=== PATIENT | female | born 1940 | race Caucasian/White ===

== ENCOUNTER → 2016-04-17 | Outpatient (CLI) | payer MEDICARE, BC | LOC: MC.RAD 11:02 | DX: Z12.31 Encounter for screening mammogram for malignant neoplasm of breast (principal) ==

== ENCOUNTER → 2016-09-22 | Outpatient (CLI) | payer MEDICARE, BC | LOC: SUN.DIA 11:45 | DX: E11.51 Type 2 diabetes mellitus with diabetic peripheral angiopathy without gangrene (principal); I67.9 Cerebrovascular disease, unspecified; I10 Essential (primary) hypertension; E78.5 Hyperlipidemia, unspecified; Z68.25 Body mass index [BMI] 25.0-25.9, adult; Z71.3 Dietary counseling and surveillance | CPT/HCPCS: G0108 ==

== ENCOUNTER → 2017-06-19 | Outpatient (CLI) | payer MEDICARE, BC | LOC: MC.RAD 10:20 | DX: Z12.31 Encounter for screening mammogram for malignant neoplasm of breast (principal) ==

== ENCOUNTER → 2018-08-16 | Outpatient (CLI) | payer MEDICARE, BC | LOC: MC.RAD 10:39 | DX: Z12.31 Encounter for screening mammogram for malignant neoplasm of breast (principal) ==

== ENCOUNTER 2019-08-19 04:39 | Emergency (ER) | payer MEDICARE, BC ==
[~2019-08-19] VITALS: Ht 172.7 cm; Wt 75.0 kg
[2019-08-19 04:41] VITALS: TEMP 98.3
[2019-08-19] MEDS ORDERED: LIPITOR 10MG10 MG PO (04:47)
[2019-08-19] MEDS ORDERED: TENORMIN 5050 MG/TAB PO (04:47)
[2019-08-19] MEDS ORDERED: DIGITEK0.25 MG PO (04:48)
[2019-08-19] MEDS ORDERED: TIROSINT75 MC1 PO (04:48)
[2019-08-19] MEDS ORDERED: PRINIVIL10 MG PO (04:49)
[2019-08-19 05:24] LABS: BASO # 0.1 (0.0-0.2); BASO % 0.6 % (0.0-2.0); EOS # 0.3 (0.0-0.7); EOS % 2.8 % (0-4.0); GRAN # 5.7 (1.4-6.5); GRAN % 64.1 % (42.2-75.2); HEMATOCRIT 36.7 % (37.0-47.0); HEMOGLOBIN 12.2 g/dl (12.5-16.0); LYMPH % 22.6 % (20.0-51.0); MEAN CELL VOLUME 100 fl (80.0-100.0); MEAN CORPUSCULAR HEMOGLOBIN 33 pg (27.0-31.0); MEAN CORPUSCULAR HGB CONC 33 g/dl (33.0-37.0); MEAN PLATELET VOLUME 10.1 fl (7.4-10.4); MONO # 0.8 (0.1-0.6); MONO % 9.3 % (1.7-9.3); PLATELET COUNT 192 K/mm3 (130-400); RED BLOOD COUNT 3.69 M/mm3 (4.10-5.30); REDCELL DISTRIBUTION WIDTH-CV 12.1 % (11.5-14.5)
[2019-08-19 05:27] LABS: PROTHROMBIN TIME 11.6 SECONDS (9.7-12.8)
[2019-08-19 05:35] LABS: ALANINE AMINOTRANSFERASE 20 U/L (4-34); ALBUMIN 3.6 gm/dL (3.5-5.0); ALKALINE PHOSPHATASE 59 U/L (50-136); ANION GAP 7 mmol/L (7-16); AST,SGOT 25 U/L (15-37); BILIRUBIN,TOTAL 0.4 mg/dL (0.0-1.0); BLOOD UREA NITROGEN 17 mg/dL (7-17); CALCIUM 9.4 mg/dL (8.4-10.2); CARBON DIOXIDE 24 mmol/L (22-30); CHLORIDE 107 mmol/L (98-107); CREATININE, serum 0.81 (0.52-1.25); GLUCOSE 134 mg/dL (74-106); POTASSIUM 3.9 mmol/L (3.4-5.0); SODIUM 138 mmol/L (137-145); TOTAL PROTEIN 7.1 gm/dL (6.4-8.2)
[2019-08-19 05:48] LABS: TROPONIN-I < 0.012 ng/mL (0.000-0.035)
[2019-08-19 06:45] VITALS: BP 166/87; PULSE 73
== END 2019-08-19 07:00 | disposition home or self-care (01) ==
LOC: COL.ER 04:39
PROVIDERS: Emergency Medicine
DX: R00.2 Palpitations (principal); R89.2 Abnormal level of other drugs, medicaments and biological substances in specimens from other organs, systems and tissues; I10 Essential (primary) hypertension; E78.5 Hyperlipidemia, unspecified; E03.9 Hypothyroidism, unspecified; I48.91 Unspecified atrial fibrillation; Z79.890 Hormone replacement therapy

== ENCOUNTER → 2019-09-08 | Outpatient (CLI) | payer MEDICARE, BC ==
[~2019-09-08] MED LIST: DIGITEK0.25 MG PO; LIPITOR 10MG10 MG PO; PRINIVIL10 MG PO; TENORMIN 5050 MG/TAB PO; TIROSINT75 MC1 PO
== END ==
LOC: MC.RAD 11:42
DX: Z12.31 Encounter for screening mammogram for malignant neoplasm of breast (principal)